=== PATIENT | female | born 1985 | race Caucasian/White ===

== ENCOUNTER 2017-04-04 12:28 | Emergency (ER) | payer OTHER ==
[~2017-04-04] VITALS: Ht 160 cm; Wt 56.7 kg
[~2017-04-04 12:28] MED LIST: NKM
[2017-04-04 12:55] VITALS: BP 114/75
[2017-04-04] MEDS ORDERED: Proparacaine 0.5% Opth Soln 15ml BOTH EYES ONE (13:00)
[2017-04-04] MEDS ORDERED: BENADRYL25 MG ORAL (13:37)
[2017-04-04] MEDS ORDERED: ARTIFICIAL TEAR15 ML BOTH EYES (13:37)
[2017-04-04 13:40] VITALS: BP 114/75
--- NOTE | 2017-04-04 22:11 | Emergency Room Report ---
History of Present Illness General Chief Complaint: Eye Problems Source: Patient Present Illness HPI The patient is a 31-year-old female presenting for bilateral eye redness and pain for the past 2 days. Pain is described as a 7/10 burning sensation. Despite nursing note, the patient denies itching. She has also noticed increased tearing. Pain does not radiate. Pain is worse with bright lights. She admits to slight blurring. She denies any sick contacts or recent travel. She denies any other symptoms including nausea, vomiting, fever, chills, nasal congestion, cough, sneezing, rash, eye discharge Allergies: Coded Allergies: No Known Allergies (Unverified , 11/26/13) Patient History Past Medical History: see triage record Pertinent Family History: none Last Menstrual Period: 04/02/17 Now: No Reviewed Nursing Documentation: PMH: Agreed, PSxH: Agreed Nursing Documentation-PMH Past Medical History: No Stated History Review of Systems All Other Systems: negative except mentioned in HPI Physical Exam Vital Signs Date Time Temp Pulse Resp B/P Pulse Ox O2 Delivery O2 Flow Rate FiO2 04/04/17 12:35 99.3 87 16 114/75 97 Room Air Sp02 EP Interpretation: reviewed, normal General Appearance: no apparent distress, alert, GCS 15, non-toxic Head: normocephalic, atraumatic Eyes: bilateral eye EOMI, bilateral eye PERRL, bilateral eye Scleral Injection ENT: hearing grossly normal, normal pharynx, no angioedema, normal voice, uvula midline Neck: full range of motion, supple/symm/no masses Respiratory: chest non-tender, lungs clear, normal breath sounds, no wheezing, speaking full sentences Musculoskeletal: back normal, gait/station normal, normal range of motion, non- tender Neurologic: alert, oriented x3, responsive, motor strength/tone normal, sensory intact, speech normal Psychiatric: judgement/insight normal, memory normal, mood/affect normal, no suicidal/homicidal ideation Skin: normal color, no rash, warm/dry, well hydrated Lymphatic: no adenopathy Medical Decision Making PA Attestation Dr. Alvarado is my supervising physician. Patient management was discussed with my supervising physician Diagnostic Impression: Primary Impression: Viral conjunctivitis of both eyes ER Course The patient is a 31-year-old female presenting for bilateral eye redness and pain Differential diagnoses considered but not limited to allergic conjunctivitis, bacterial conjunctivitis, viral conjunctivitis, blepharitis, hordeolum Physical exam: No apparent distress HEENT: There is bilateral conjunctival injection with increased tearing. No discharge. No crusting. PERRL. EOMI. no edema Proparacaine is applied to both eyes and the patient has noticed relief for pain She'll be discharged home with a prescription for artificial tears and will followup with PMD. ER precautions given Last Vital Signs Date Time Temp Pulse Resp B/P Pulse Ox O2 Delivery O2 Flow Rate FiO2 04/04/17 13:40 99.3 16 114/75 97 Room Air 04/04/17 12:35 87 Status: improved Disposition: HOME, SELF-CARE Condition: Improved Scripts Diphenhydramine Hcl* (BENADRYL*) 25 Mg Capsule 25 MG ORAL Q6H Y for Itching, #15 CAP Prov: KIMMIE SHANNON 04/04/17 Dextran 70/Hypromellose (ARTIFICIAL TEARS EYE DROPS*) 15 Ml Drops 1 DROP BOTH EYES PRN, #15 ML 0 Refills Prov: KIMMIE SHANNON 04/04/17 Departure Forms: Return to Work Return to Work Date: Apr 07, 2017 Patient Instructions: Viral Conjunctivitis Additional Instructions: I discussed my findings with the patient. All questions and concerns have been answered. Treatment and medication compliance have been addressed. I advised the patient that they need to follow up with PMD in 3-5 days. Return to ED if symptoms worsen, new symptoms arise, or if needed for any reason. Patient verbalized understanding of discharge instructions. KIMMIE SHANNON April 04, 2017 22:11
== END 2017-04-04 13:40 | disposition home or self-care (01) ==
LOC: EMR 13:15
DX: B30.9 Viral conjunctivitis, unspecified (principal)
CPT/HCPCS: 99284